=== PATIENT | male | born 2000 | race Caucasian/White ===

== ENCOUNTER 2021-12-08 15:58 | Inpatient (IN) | payer OTHER ==
[~2021-12-08] VITALS: Ht 182.9 cm; Wt 71.0 kg
[2021-12-08 16:05] VITALS: BP_SYST 148
--- NOTE | 2021-12-08 17:01 | NUR ---
Patient to ER H1 to gown for evaluation. Side rails up.
--- NOTE | 2021-12-08 17:05 | NUR ---
PT BIB FATHER FROM HOME C/O N/V X 3 DAYS WITH ABD PAIN, ADMITS TO SMOKING MARIJUANA THIS WEEKEND. UNABLE TO TOLERATE PO, FEELS DEHYDRATED. PT IS AMBUALTORY, AAOX4, VSS
--- NOTE | 2021-12-08 17:16 | NUR ---
# 20 gauge angiocath placed to RAC. Use of asceptic technique. Opsite placed over site. Blood return noted. Blood for lab drawn from site. Flushed with 10 cc of normal saline. No evidence of infiltration noted. Patient tolerated well.
--- NOTE | 2021-12-08 17:17 | NUR ---
ER DR. MILES EXAMINING PT
[2021-12-08] MEDS ORDERED: NACL 0.9% 1,000 ML IV ONE ×2 (17:30→18:30)
[2021-12-08] MEDS ORDERED: HALOPERIDOL LACTATE 5 MG/ML VIAL IM ONE (17:30)
[2021-12-08] MEDS ORDERED: ZOSTRIX 0.025% CR TP ONE (17:30)
[2021-12-08 17:40] LABS: BASOPHILS % (AUTO) 0.2 % (0.0-2.0); LYMPHOCYTES # (AUTO) 0.6 K/uL (1.0-5.5); MONOCYTES # (AUTO) 0.6 K/uL (0.0-1.0); RED CELL DISTRIBUTION WIDTH 12.1 % (9.0-15.0)
[2021-12-08 17:56] LABS: CALCIUM 10.2 mg/dL (8.4-11.0); CREATININE 1.22 mg/dL (0.55-1.30)
[2021-12-08 18:02] LABS: ALBUMIN 4.9 g/dL (3.4-4.8); TOTAL BILIRUBIN 1.1 mg/dL (0.0-1.0)
[2021-12-08 18:05] LABS: HEMATOCRIT 45.5 % (36-54); LYMPHOCYTES % (AUTO) 4.1 % (20.5-51.5); MEAN CORPUSCULAR VOLUME 88 fL (79.0-98.0); MONOCYTES % (AUTO) 4.7 % (1.7-9.3); NEUTROPHILS # (AUTO) 12.4 K/uL (1.8-7.7); PLATELET COUNT (AUTO) 378 K/uL (130-430); WHITE BLOOD COUNT (AUTO) 13.6 K/uL (4.8-10.8)
[2021-12-08] MEDS ORDERED: KCL 20 mEq in 100 mL (PREMIX) 100 ML IV ONE (18:30)
[2021-12-08] MEDS ORDERED: PROCHLORPERAZINE EDISYLATE 10 MG/2 ML VIAL IVP ONE (18:30)
[2021-12-08] MEDS ORDERED: D5NS 1,000 ML IV ONE (18:30)
--- NOTE | 2021-12-08 19:02 | NUR ---
PT ABLE TO TOLERATE WATER PO
--- NOTE | 2021-12-08 19:40 | NUR ---
Pt A&Ox4, VSS, respirations even and unlabored, no N/V noted
[2021-12-08] MEDS ORDERED: LR 1,000 ML IV SCH (22:15)
[2021-12-08] MEDS ORDERED: METOCLOPRAMIDE HCL 10 MG/2 ML VIAL IVP PRN (22:30)
[2021-12-08] MEDS ORDERED: PANTOPRAZOLE SODIUM 40 MG/VIAL (PROTONIX) IVP ONE (22:30)
[2021-12-08] MEDS ORDERED: ONDANSETRON HCL 4 MG/2 ML VIAL IVP PRN (22:30)
[2021-12-08] MEDS ORDERED: KCL 40 mEq in 100 mL (PREMIX) 100 ML IV ONE (22:45)
--- NOTE | 2021-12-08 23:02 | NUR ---
Pt ambulated to restroom, pt did not collect urine sample, states he could not do it
--- NOTE | 2021-12-08 23:22 | NUR ---
Admit bed requested Patient will be admitted to care of [[facility]]. Admitted to [[facility]] unit. Diagnosis [INTRACTABLE VOMITING AND DEHYDRATION] Inpatient (Yes or No) [YES] Observation (Yes or No) [NO] Orientation concerns or request close to nursing station (Yes or No) [NO] Covid Status [NEG] On vent or bipap [NO] Isolation requirements [NO] Needs a sitter [NO] From Home (Yes or if No enter name of facility) [YES] Requires Dialysis (Yes or No) [NO] Med Rec Completed (Yes of No) [NO]
--- NOTE | 2021-12-08 23:48 | NUR ---
Patient will be admitted to care of [facility]. Admitted to unit. Will go to room . Belongings list completed. Complete and up to date summary report printed. SBAR report to be given at bedside with opportunity for questions.
--- NOTE | 2021-12-08 23:50 | NUR ---
REPORT GIVEN TO BEDSIDE RNMADIHA. XIAO PATTERN CHAIN BUILDER TRANSPORTING PATIENT TO ROOM 100B.
[2021-12-09 03:23] VITALS: BP_SYST 124
--- NOTE | 2021-12-09 04:46 | NUR ---
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
--- NOTE | 2021-12-09 06:45 | NUR ---
At 0030 - Received patient from ER, a/o x 4 in no acute distress. Respiration is even and unlabored, O2 sat on RA 98-99%, Patient's c/c was he vomited x 3 days. Vomited in ER 3x. No c/o vomiting or nausea at this time. Admission is done. Patient c/o pain on the LAC where the IV access is. Removed IV access on LAC and established IV access on the LFA using aseptic technique on first attempt. Patient tolerated it well.
--- NOTE | 2021-12-09 07:15 | NUR ---
opening note received sbar from night RN. Patient in bed, respirations even, non labored, bed in low and locked position call light within reach. IVF running as ordered
[2021-12-09 07:44] LABS: BASOPHILS % (AUTO) 0.3 % (0.0-2.0); EOSINOPHILS % (AUTO) 0.4 % (0.0-4.0); HEMATOCRIT 39.3 % (36-54); LYMPHOCYTES # (AUTO) 1.7 K/uL (1.0-5.5); LYMPHOCYTES % (AUTO) 17.1 % (20.5-51.5); MEAN CORPUSCULAR VOLUME 87 fL (79.0-98.0); MONOCYTES % (AUTO) 9.6 % (1.7-9.3); NEUTROPHILS # (AUTO) 7.3 K/uL (1.8-7.7); NEUTROPHILS % (AUTO) 72.6 % (40.0-70.0); PLATELET COUNT (AUTO) 274 K/uL (130-430); RED BLOOD CELL COUNT(AUTO) 4.52 MIL/uL (4.2-6.2); RED CELL DISTRIBUTION WIDTH 12.1 % (9.0-15.0); WHITE BLOOD COUNT (AUTO) 10.1 K/uL (4.8-10.8)
[2021-12-09 08:00] VITALS: BP_SYST 134
--- NOTE | 2021-12-09 08:05 | NUR ---
anxiety patient complaining of anxiety. requesting medication. paged dr Chand for orders
--- NOTE | 2021-12-09 08:32 | NUR ---
anxiety patient complaining of anxiety, jittery feeling and shaking. educated regarding deep breathing. Paged Dr Chand for orders
[2021-12-09 08:41] LABS: CALCIUM 9.3 mg/dL (8.4-11.0); CREATININE 0.85 mg/dL (0.55-1.30); POTASSIUM 3.5 mmol/L (3.5-5.1); TOTAL BILIRUBIN 1.1 mg/dL (0.0-1.0)
--- NOTE | 2021-12-09 08:45 | NUR ---
Informed Dr Chand of patients request for anxiety medication. New orders received
[2021-12-09] MEDS ORDERED: PANTOPRAZOLE SODIUM 40 MG/VIAL (PROTONIX) IVP SCH (09:00)
[2021-12-09] MEDS ORDERED: LORazepam 1 MG TABLET PO PRN (09:00)
--- NOTE | 2021-12-09 09:36 | NUR ---
IV PATIENT REQUEST TO HAVE IV REMOVED. STATES HE DOES NOT LIKE IT. EDUCATED PATIENT OT THE INDICATIONS OF IV FLUIDS ANSWERED ALL QUESTIONS, PATIENT VERBALIZED UNDERSTANDING. CONTINUED TO REQUEST THAT IV BE REMOVED. REMOVED IV CATHETER INTACT. NO BLEEDING
--- NOTE | 2021-12-09 10:15 | NUR ---
Paged Dr Chand regarding patient leaving AMA
--- NOTE | 2021-12-09 10:15 | NUR ---
AMA: Patient does not wish to proceed with medical care recommended by . Patient given information related to possible complications, up to and including , which could occur as a result of leaving hospital at this time. Patient verbalizes understanding of risks involved leaving against medical advice. Patient has signed AMA form.
[2021-12-09 10:52] LABS: BARBITURATE, URINE NEGATIVE (NEG <=200); BENZODIAZEPINE, URINE NEGATIVE (NEG <=150); CANNABINOID, URINE POSITIVE (NEG <=50); COCAINE, URINE NEGATIVE (NEG <=150); METHAMPHETAMINES SCREEN,URINE NEGATIVE (NEG <=500); OPIATE, URINE NEGATIVE (NEG <=100); PHENCYCLIDINE SCREEN,URINE NEGATIVE (NEG <=25); UR TRICYCLIC ANTIDEPRESSANTS NEGATIVE (NEG <=300); URINE AMPHETAMINE NEGATIVE (NEG <=500); URINE METHADONE NEGATIVE (NEG <=200); URINE OXYCODONE SCREEN NEGATIVE (NEG <=100); URINE PROPOXYPHENE SCREEN NEGATIVE (NEG <=300)
--- NOTE | 2021-12-09 11:05 | NUR ---
INFORMED DR BLACKBURN THAT PATIENT LEFT AMA
--- NOTE | 2021-12-09 12:58 | NUR ---
Dispo code 07
== END 2021-12-09 10:15 | disposition left against medical advice (07) | DRG 392 ==
LOC: SED 15:58 → SMU 22:15
PROVIDERS: ADMIT Internal Medicine; ATTEND Internal Medicine
DX: R11.2 Nausea with vomiting, unspecified (principal); E87.6 Hypokalemia; E86.0 Dehydration; F12.90 Cannabis use, unspecified, uncomplicated; F41.9 Anxiety disorder, unspecified; Z53.29 Procedure and treatment not carried out because of patient's decision for other reasons; Z20.822 Contact with and (suspected) exposure to COVID-19
CPT/HCPCS: 36415; 80053; 80307; 83605; 83690; 83735; 85025; C9113; G0481; J0780; J1630; J3480